=== PATIENT | female | born 1975 | race Caucasian/White ===

== ENCOUNTER 2017-03-19 00:40 | Emergency (ER) | payer OTHER ==
[2017-03-19 01:00] VITALS: BP 144/84; PULSE 70; TEMP 98.2; BMI 28.3
--- NOTE | 2017-03-19 01:43 | PDOC ---
History of Present Illness - General History Source: Patient Exam Limitations: No Limitations - History of Present Illness Initial Comments: 03/19/17 01:47 The patient is a 40-year-old female, with a significant past medical history of migraines, who presents to the ED with left ear pain and headache. Pt states that her symptoms began yesterday and were accompanied by congestion, runny nose , and sneezing. She reports taking tylenol but with no relief of her symptoms. The patient denies any fever, chills, nausea, vomiting, diarrhea, or abdominal pain. She denies any shortness of breath or chest pain. <Edith Mendoza - Last Filed: 03/19/17 01:52> <Anna Ybarra - Last Filed: 03/19/17 04:10> - General Chief Complaint: Pain Stated Complaint: EARACHE Time Seen by Provider: 03/19/17 01:14 Past History <Edith Mendoza - Last Filed: 03/19/17 01:52> - Past Medical History GI Disorders: Yes (GERD) Other medical history: Migraines - Reproductive History (#): 6 Para: 5 - Immunization History Immunization Up to Date: Yes - Psycho/Social/Smoking Cessation Hx Anxiety: No Suicidal Ideation: No Smoking Status: No Smoking History: Never smoked Have you smoked in the past 12 months: No Number of Cigarettes Smoked Daily: 0 Cigars Per Day: 0 Information on smoking cessation initiated: No Hx Alcohol Use: No Drug/Substance Use Hx: No Substance Use Type: None <Anna Ybarra - Last Filed: 03/19/17 04:10> - Past Medical History Allergies/Adverse Reactions: Allergies Allergy/AdvReac Type Severity Reaction Status Date / Time No Known Allergies Allergy Verified 03/19/17 00:52 Home Medications: Ambulatory Orders Triamcinolone Acetonide [Nasacort] 2 sprays NS DAILY #10.8 ml 03/19/17 Review of Systems - Review of Systems Able to Perform ROS?: Yes Comments:: 03/19/17 01:53 GENERAL/CONSTITUTIONAL: No fever or chills. No weakness. HEAD, EYES, EARS, NOSE AND THROAT: +left ear pain, runny nose, sneezing, and congestion. No change in vision. No ear discharge. No sore throat. CARDIOVASCULAR: No chest pain or shortness of breath. RESPIRATORY: No cough, wheezing, or hemoptysis. GASTROINTESTINAL: No nausea, vomiting, diarrhea or constipation. GENITOURINARY: No dysuria, frequency, or change in urination. MUSCULOSKELETAL: No joint or muscle swelling or pain. No neck or back pain. SKIN: No rash NEUROLOGIC: +Headache. No vertigo, loss of consciousness, or change in strength/ sensation. ENDOCRINE: No increased thirst. No abnormal weight change. HEMATOLOGIC/LYMPHATIC: No anemia, easy bleeding, or history of blood clots. ALLERGIC/IMMUNOLOGIC: No hives or skin allergy. <Edith Mendoza - Last Filed: 03/19/17 01:52> *Physical Exam - Vital Signs Last Vital Signs Temp Pulse Resp BP Pulse Ox 98.2 F 70 19 144/84 99 03/19/17 00:52 03/19/17 00:52 03/19/17 00:52 03/19/17 00:52 03/19/17 00:52 <Edith Mendoza - Last Filed: 03/19/17 01:52> - Vital Signs Last Vital Signs Temp Pulse Resp BP Pulse Ox 98.2 F 70 19 144/84 99 03/19/17 00:52 03/19/17 00:52 03/19/17 00:52 03/19/17 00:52 03/19/17 00:52 - Physical Exam Comments: GENERAL: Awake, alert, and fully oriented, in no acute distress HEAD: No signs of trauma EYES: PERRLA, EOMI, sclera anicteric, conjunctiva clear ENT: Auricles normal inspection, hearing grossly normal. TMs bulging with clear effusions B/L, no erythema. Nares with crusting B/L, oropharynx clear without exudates. Moist mucosa NECK: Normal ROM, supple, no lymphadenopathy, JVD, or masses LUNGS: Breath sounds equal, clear to auscultation bilaterally. No wheezes, and no crackles HEART: Regular rate and rhythm, normal S1 and S2, no murmurs, rubs or gallops ABDOMEN: Soft, nontender, normoactive bowel sounds. No guarding, no rebound. No masses EXTREMITIES: Normal range of motion, no edema. No clubbing or cyanosis. No cords, erythema, or tenderness NEUROLOGICAL: Cranial nerves II through XII grossly intact. Normal speech, normal gait SKIN: Warm, Dry, normal turgor, no rashes or lesions noted. <Anna Ybarra - Last Filed: 03/19/17 04:10> Medical Decision Making - Medical Decision Making Ear pain likely due to viral URI, as both ears are noted to have clear effusions. She has had sore throat, but throat is without exudates. Recommended nasal steroids to alleviate her symptoms. No indication for abx at this time. <Anna Ybarra - Last Filed: 03/19/17 04:10> *DC/Admit/Observation/Transfer - Attestations Scribe Attestion: 03/19/17 01:54 Documentation prepared by Edith Mendoza, acting as medical physiologist for Anna Ybarra MD. <Edith Mendoza - Last Filed: 03/19/17 01:52> - Discharge Dispostion Admit: No <Anna Ybarra - Last Filed: 03/19/17 04:10> Diagnosis at time of Disposition: Ear pain, left Upper respiratory infection Qualifiers: URI type: unspecified URI Qualified Code(s): J06.9 - Acute upper respiratory infection, unspecified - Discharge Dispostion Disposition: HOME Condition at time of disposition: Stable - Prescriptions Prescriptions: Triamcinolone Acetonide [Nasacort] 2 sprays NS DAILY #10.8 ml - Referrals Referrals: Cassie Vivas MD [Primary Care Provider] - - Patient Instructions Printed Discharge Instructions: DI for Viral Upper Respiratory Infection -- Adult, DI for Ear Pain-Adult Print Language: SYRIAC
== END 2017-03-19 01:54 | disposition home or self-care (01) ==
LOC: JER 00:40
DX: J06.9 Acute upper respiratory infection, unspecified (principal)
CPT/HCPCS: 99281-25

== ENCOUNTER 2017-08-17 18:35 | Emergency (ER) | payer OTHER ==
--- NOTE | 2017-08-17 18:38 | PDOC ---
Rapid Medical Evaluation Time Seen by Provider: 08/17/17 18:37 Medical Evaluation: Allergies Allergy/AdvReac Type Severity Reaction Status Date / Time No Known Allergies Allergy Verified 03/19/17 00:52 08/17/17 18:37 I have performed a brief in-person evaluation of this patient. The patient presents with a chief complaint of: Intermittent dizziness w/ n/v and UGALDE today. Pertinent physical exam findings:Stable w/ unremarkable exam I have ordered the following:labs The patient will proceed to the ED for further evaluation. 08/17/17 18:51 08/17/17 18:54 Discharge Disposition - Referrals Referrals: Cassie Vivas MD [Primary Care Provider] - - Patient Instructions - Post Discharge Activity
[2017-08-17 19:01] VITALS: BMI 27.4
[2017-08-17 20:45] LABS: BASO # 0.1 #; BASO % 0.6 % (0-2.0); EOS # 0.1 #; EOS % 0.8 % (0-4.5); LYMPH # 1.5; MCH 27.9 pg (25.7-33.7); MCHC 32.8 g/dl (32.0-36.0); MEAN CELL VOLUME 85.1 fl (80-96); MEAN PLT VOLUME 9.2 fl (7.5-11.1); MONO # 0.4 #; NEUT # 8.9 #; NEUT % 80.7 % (42.8-82.8); PLATELET COUNT 268 K/MM3 (134-434); RDW 14.4 % (11.6-15.6); WHITE BLOOD COUNT 11.1 K/mm3 (4.0-10.0)
[2017-08-17 20:50] LABS: URINE APPEARANCE SLCLOUDY; URINE BILIRUBIN NEGATIVE (NEGATIVE); URINE BLOOD NEGATIVE (NEGATIVE); URINE COLOR LTYELLOW; URINE GLUCOSE (UA) NEGATIVE (NEGATIVE); URINE KETONE NEGATIVE (NEGATIVE); URINE LEUK ESTERASE NEGATIVE (NEGATIVE); URINE NITRITE NEGATIVE (NEGATIVE); URINE PROTEIN NEGATIVE (NEGATIVE); URINE UROBILINOGEN NEGATIVE mg/dL (0.2-1.0)
[2017-08-17 21:02] LABS: ALBUMIN 4.2 g/dl (3.4-5.0); ANION GAP 8 (8-16); BILIRUBIN,TOTAL 0.3 mg/dL (0.2-1.0); CALCIUM 9.3 mg/dL (8.5-10.1); CO2 26 mmol/L (21-32); CREATININE 0.4 mg/dL (0.55-1.02); GLUCOSE,RANDOM 94 mg/dL (74-106); SGOT/AST 17 U/L (15-37); SGPT/ALT 34 U/L (12-78); TOT PROT 7.9 g/dl (6.4-8.2)
[2017-08-17 21:03] LABS: ALK PHOS 82 U/L (45-117)
[2017-08-17] MEDS ORDERED: SODIUM CHLORIDE 1,000 ML IV STA (21:42)
[2017-08-17] MEDS ORDERED: METOCLOPRAMIDE HCL INJECTION 10 MG/2 ML VIAL IVPUSH ONE (21:42)
--- NOTE | 2017-08-17 21:42 | PDOC ---
History of Present Illness - General Chief Complaint: Nausea Stated Complaint: NAUSEA,HEACHACE Time Seen by Provider: 08/17/17 18:37 History Source: Patient Exam Limitations: No Limitations - History of Present Illness Initial Comments: 08/17/17 21:55 42-year-old female with a history of vertigo/migraine presents to the emergency department complaining of bitemporal, left occipital 4/10 dull nonradiating intermittent throbbing headache and room spinning dizziness uncertain positions 6 hours with 2 bouts of vomiting 3 hours ago which was nonbloody and nonbilious. Patient denies fever, chills, facial pains, neck pain/stiffness, back pains, chest pain, shortness of breath, abdominal pains, extremity numbness or tingling sensation. Patient states her symptoms are similar to her previous vertigo and migraine Timing/Duration: 4-6 hours Past History - Past Medical History Allergies/Adverse Reactions: Allergies Allergy/AdvReac Type Severity Reaction Status Date / Time No Known Allergies Allergy Verified 08/17/17 18:52 Home Medications: Ambulatory Orders Triamcinolone Acetonide [Nasacort] 2 sprays NS DAILY #10.8 ml 03/19/17 CVA: No COPD: No GI Disorders: Yes (GERD) - Reproductive History (#): 6 Para: 5 - Immunization History Immunization Up to Date: Yes - Suicide/Smoking/Psychosocial Hx Smoking Status: No Smoking History: Never smoked Have you smoked in the past 12 months: No Number of Cigarettes Smoked Daily: 0 Cigars Per Day: 0 Information on smoking cessation initiated: No Hx Alcohol Use: No Drug/Substance Use Hx: No Substance Use Type: None Review of Systems - Review of Systems Able to Perform ROS?: Yes Comments:: 08/17/17 21:56 CONSTITUTIONAL: Absent: fever, chills, diaphoresis, generalized weakness, malaise, loss of appetite HEENT: Absent: rhinorrhea, nasal congestion, throat pain, throat swelling, difficulty swallowing, mouth swelling, ear pain, eye pain, visual Changes CARDIOVASCULAR: Absent: chest pain, loss of consciousness, palpitations, irregular heart rate, peripheral edema RESPIRATORY: Absent: cough, shortness of breath, dyspnea with exertion, orthopnea, wheezing, stridor, hemoptysis GASTROINTESTINAL: Absent: abdominal pain, abdominal distension, nausea, vomiting, diarrhea, constipation, melena, hematochezia GENITOURINARY: Absent: dysuria, frequency, urgency, hesitancy, hematuria, flank pain, genital pain MUSCULOSKELETAL: Absent: myalgia, arthralgia, joint swelling SKIN: Absent: rash, itching, pallor HEMATOLOGIC/IMMUNOLOGIC: Absent: easy bleeding, easy bruising, lymphadenopathy, frequent infections ENDOCRINE: Absent: unexplained weight gain, unexplained weight loss, heat intolerance, cold intolerance NEUROLOGIC: +dizzy, eaton Absent: focal weakness or paresthesias, unsteady gait, seizure, mental status changes, bladder or bowel incontinence PSYCHIATRIC: Absent: anxiety, depression, suicidal or homicidal ideation, hallucinations. Is the patient limited Kinyarwanda proficient: No *Physical Exam - Vital Signs Last Vital Signs Temp Pulse Resp BP Pulse Ox 97.5 F L 76 16 159/91 99 08/17/17 18:53 08/17/17 18:53 08/17/17 18:53 08/17/17 18:53 08/17/17 18:53 - Physical Exam Comments: 08/17/17 21:58 GENERAL: Well developed, well nourished. Awake and alert. No acute distress. HEENT: Normocephalic, atraumatic. PERRLA, EOMI. No conjunctival pallor. Sclera are non- icteric. Moist mucous membranes. Oropharynx is clear. NECK: Supple. Full ROM. No JVD. Carotid pulses 2+ and symmetric, without bruits. No thyromegaly. No lymphadenopathy. CARDIOVASCULAR: Regular rate and rhythm. No murmurs, rubs, or gallops. Distal pulses are 2+ and symmetric. PULMONARY: No evidence of respiratory distress. Lungs clear to auscultation bilaterally. No wheezing, rales or rhonchi. ABDOMINAL: Soft. Non-tender. Non-distended. No rebound or guarding. No organomegaly. Normoactive bowel sounds. MUSCULOSKELETAL Normal range of motion at all joints. No bony deformities or tenderness. No CVA tenderness. EXTREMITIES: No cyanosis. No clubbing. No edema. No calf tenderness. SKIN: Warm and dry. Normal capillary refill. No rashes. No jaundice. NEUROLOGICAL: Alert, awake, appropriate. Cranial nerves 2-12 intact. No deficits to light touch and temperature in face, upper extremities and lower extremities. No motor deficits in the in face, upper extremities and lower extremities. Normoreflexic in the upper and lower extremities. Normal speech. Toes are down- going bilaterally. Gait is normal without ataxia. PSYCHIATRIC: Cooperative. Good eye contact. Appropriate mood and affect. ED Treatment Course - LABORATORY CBC & Chemistry Diagram: 08/17/17 19:25 08/17/17 19:25 - ADDITIONAL ORDERS Additional order review: Laboratory Results 08/17/17 08/17/17 19:25 19:25 Sodium 136 Potassium 3.9 Chloride 102 Carbon Dioxide 26 Anion Gap 8 BUN 14 D Creatinine 0.4 L Creat Clearance w eGFR > 60 Random Glucose 94 Calcium 9.3 Total Bilirubin 0.3 D AST 17 D ALT 34 D Alkaline Phosphatase 82 Total Protein 7.9 Albumin 4.2 Urine HCG, Qual Negative 08/17/17 19:25 RBC 4.83 MCV 85.1 MCHC 32.8 RDW 14.4 MPV 9.2 Neutrophils % 80.7 D Lymphocytes % 14.0 D Monocytes % 3.9 Eosinophils % 0.8 D Basophils % 0.6 *DC/Admit/Observation/Transfer Diagnosis at time of Disposition: Migraine Qualifiers: Migraine type: without aura Status migrainosus presence: without status migrainosus Intractability: not intractable Qualified Code(s): G43.009 - Migraine without aura, not intractable, without status migrainosus Benign positional vertigo Qualifiers: Laterality: unspecified laterality Qualified Code(s): H81.10 - Benign paroxysmal vertigo, unspecified ear - Discharge Dispostion Condition at time of disposition: Stable Admit: No - Referrals Referrals: Cassie Vivas MD [Primary Care Provider] - Juan Brock DO [Staff Physician] - - Patient Instructions Printed Discharge Instructions: DI for Migraine, Benign Paroxysmal Positional Vertigo Additional Instructions: Rest Increase fluids Follow up with the neurologist within 48 hours Return to the Er for persistent/worsening symptoms - Post Discharge Activity Progress Note - Progress Note Progress Note: 2215hrs: Pt feels better 2335hrs: Pt states she is symptom free and wishes to be d/c
--- NOTE | 2017-08-17 21:45 | PDOC ---
*Physical Exam - Vital Signs Last Vital Signs Temp Pulse Resp BP Pulse Ox 97.5 F L 76 16 159/91 99 08/17/17 18:53 08/17/17 18:53 08/17/17 18:53 08/17/17 18:53 08/17/17 18:53 ED Treatment Course - LABORATORY CBC & Chemistry Diagram: 08/17/17 19:25 08/17/17 19:25 - ADDITIONAL ORDERS Additional order review: Laboratory Results 08/17/17 08/17/17 19:25 19:25 Sodium 136 Potassium 3.9 Chloride 102 Carbon Dioxide 26 Anion Gap 8 BUN 14 D Creatinine 0.4 L Creat Clearance w eGFR > 60 Random Glucose 94 Calcium 9.3 Total Bilirubin 0.3 D AST 17 D ALT 34 D Alkaline Phosphatase 82 Total Protein 7.9 Albumin 4.2 Urine HCG, Qual Negative 08/17/17 19:25 RBC 4.83 MCV 85.1 MCHC 32.8 RDW 14.4 MPV 9.2 Neutrophils % 80.7 D Lymphocytes % 14.0 D Monocytes % 3.9 Eosinophils % 0.8 D Basophils % 0.6 Medical Decision Making - Medical Decision Making 08/17/17 21:45 agree with care from NIMESH Ortiz *DC/Admit/Observation/Transfer Diagnosis at time of Disposition: Migraine, Benign positional vertigo - Discharge Dispostion Condition at time of disposition: Stable - Referrals Referrals: Juan Brock DO [Staff Physician] - Cassie Vivas MD [Primary Care Provider] - - Patient Instructions Printed Discharge Instructions: DI for Migraine, Benign Paroxysmal Positional Vertigo Additional Instructions: Rest Increase fluids Follow up with the neurologist within 48 hours Return to the Er for persistent/worsening symptoms - Post Discharge Activity
[2017-08-17] MEDS ORDERED: METOCLOPRAMIDE HCL INJECTION 10 MG/2 ML VIAL ONE (22:14)
[2017-08-17 22:32] LABS: URINE LEUK ESTERASE Negative (NEGATIVE)
[2017-08-18 00:12] VITALS: BP 145/84; PULSE 74; TEMP 97.4
== END 2017-08-18 00:22 | disposition home or self-care (01) ==
LOC: JER 18:35
PROC: 3E033GC Introduction of Other Therapeutic Substance into Peripheral Vein, Percutaneous Approach (ICD-10-PCS; principal; 2017-08-17)
DX: G43.009 Migraine without aura, not intractable, without status migrainosus (principal); H81.10 Benign paroxysmal vertigo, unspecified ear
CPT/HCPCS: 36415; 80053; 81003; 84703; 85025; 99282-25

== ENCOUNTER 2017-09-18 14:07 | Emergency (ER) | payer OTHER ==
[2017-09-18 14:19] VITALS: BP 123/76; PULSE 77; TEMP 98.4; BMI 27.4
--- NOTE | 2017-09-18 14:47 | PDOC ---
History of Present Illness - General Chief Complaint: Ear Problem Stated Complaint: EAR PAIN History Source: Patient Exam Limitations: No Limitations - History of Present Illness Initial Comments: 09/18/17 14:48 42-year-old female presents here with complaints of left ear pain. She was treated a couple weeks ago for vertigo pain. Past History - Past Medical History Allergies/Adverse Reactions: Allergies Allergy/AdvReac Type Severity Reaction Status Date / Time No Known Allergies Allergy Verified 09/18/17 14:19 Home Medications: Ambulatory Orders Meclizine HCl 25 mg PO BID 5 Days #10 tablet 09/18/17 Ofloxacin Otic [Floxin Otic -] 10 drop OT BID #1 bottle 09/18/17 CVA: No COPD: No GI Disorders: Yes (GERD) Other medical history: vertigo - Reproductive History (#): 6 Para: 5 - Immunization History Immunization Up to Date: Yes - Suicide/Smoking/Psychosocial Hx Smoking Status: No Smoking History: Never smoked Have you smoked in the past 12 months: No Number of Cigarettes Smoked Daily: 0 Cigars Per Day: 0 Hx Alcohol Use: No Drug/Substance Use Hx: No Substance Use Type: None Review of Systems - Review of Systems Able to Perform ROS?: Yes Comments:: 09/18/17 14:58 General statement: Left ear pain Hematology: neg history of bleeding/blood thinners Skin: Neg for lesions, rash, bruising. HEENT: Neg symptoms Respiratory: Neg SOB or difficulty in breathing Cardiac: Neg chest pain GI: Neg pain, n/v : Neg problems on voiding MS: Neg for joint pain/stiffness, no edema Neuro: Neg for LOC, weakness, Endocrine: Neg for excess thirst/hunger, cold/heat intolerance, excess sweating Allergies: Neg for allergies *Physical Exam - Vital Signs Last Vital Signs Temp Pulse Resp BP Pulse Ox 98.4 F 77 18 123/76 99 09/18/17 14:16 09/18/17 14:16 09/18/17 14:16 09/18/17 14:16 09/18/17 14:16 - Physical Exam Comments: 09/18/17 14:58 General Appearance: This well appearing V/S: hemodynamically stable, afebrile Skin: WNL of pt's skin color, no signs of pallor, mottling, cyanosis Head:symmetrical Eyes: EOM's intact, PERRLA Ears: Planes of left ear pain no complaint of pain to the right ear and also states she's dizzy on and off Nose: patent Throat: lips, teeth, gums, tongue, buccal mucos pink and moist Lungs: Chest symmetry equal. Cap refill <3 seconds. Lung sounds clear Cardiac: PMI at R 4MCL space, pos S1 and S2, regular rate. Abdomen: Soft, round, nontender : Not observed Muscularskeletal: Gait steady, ambulated in to ER, no edema +PMS Neuro: AAOx3, cognitively intact, speech clear and appropriate. Medical Decision Making - Medical Decision Making 09/18/17 14:59 She was initially seen and examined. Patient is going to be given Antivert as well as some eardrops for a left ear labyrinthitis. She should follow-up with an ENT. *DC/Admit/Observation/Transfer Diagnosis at time of Disposition: Benign positional vertigo Qualifiers: Laterality: left Qualified Code(s): H81.12 - Benign paroxysmal vertigo, left ear Acute labyrinthitis Qualifiers: Laterality: left Qualified Code(s): H83.02 - Labyrinthitis, left ear - Discharge Dispostion Disposition: HOME Condition at time of disposition: Good Admit: No - Referrals - Patient Instructions Printed Discharge Instructions: DI for Benign Paroxysmal Positional Vertigo Additional Instructions: Discharge instructions 1. Please follow up with your primary physician within the next few days and explain that you have been seen here in the Emergency Room. 2. If you experience any worsening of symptoms, please return to the ER 3. Rest, do not stick anything in the ear, take drops and pills as directed. 4. Drink plenty of water - Post Discharge Activity
== END 2017-09-18 14:50 | disposition home or self-care (01) ==
LOC: JERFT 14:07
DX: H81.12 Benign paroxysmal vertigo, left ear (principal); H83.02 Labyrinthitis, left ear
CPT/HCPCS: 99281-25

== ENCOUNTER 2017-10-02 17:58 | Emergency (ER) | payer OTHER ==
[2017-10-02 18:51] VITALS: BP 129/82; PULSE 81; TEMP 98.3; BMI 27.4
[2017-10-02] MEDS ORDERED: IBUPROFEN 400 MG TABLET (FP) PO ONE ×2 (20:29→21:02)
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
[2017-10-02] MEDS ORDERED: CYCLOBENZAPRINE HCL 10 MG TABLET (FP) PO ONE (20:30)
[2017-10-02] MEDS ORDERED: CYCLOBENZAPRINE HCL 10 MG TABLET (FP) ONE (21:02)
== END 2017-10-02 21:18 | disposition home or self-care (01) ==
LOC: JERFT 17:58
DX: M54.5 Low back pain (principal); M25.561 Pain in right knee; V49.59XA Passenger injured in collision with other motor vehicles in traffic accident, initial encounter; Y92.488 Other paved roadways as the place of occurrence of the external cause; Y93.89 Activity, other specified; Y99.8 Other external cause status
CPT/HCPCS: 99281-25

== ENCOUNTER 2019-03-30 22:50 | Emergency (ER) | payer OTHER ==
[2019-03-30 23:01] VITALS: BP 150/95; PULSE 89; TEMP 98.1; BMI 29.1
[2019-03-31] MEDS ORDERED: METOCLOPRAMIDE HCL INJECTION 10 MG/2 ML VIAL IVPUSH ONE (00:16)
[2019-03-31] MEDS ORDERED: SODIUM CHLORIDE 1,000 ML IV STA (00:16)
--- NOTE | 2019-03-31 00:36 | PDOC ---
History of Present Illness - General Chief Complaint: Migraine Headache Stated Complaint: MIGRAINES HEADACHE Time Seen by Provider: 03/31/19 00:15 History Source: Patient - History of Present Illness Initial Comments: 03/31/19 00:43 43 year old female with history of migraines (currently on triptan & fiorocet PRN), Vertigo c/o migraine x 3 days. + photophobia, + phonophobia. + nausea, denies vomiting, abdominal pain, weakness, numbness. patient reports that 25 days ago patient had a SQ for migraines. reports headache once per week usually relieved with fiorocet. Past History - Past Medical History Allergies/Adverse Reactions: Allergies Allergy/AdvReac Type Severity Reaction Status Date / Time No Known Allergies Allergy Verified 03/30/19 23:40 Home Medications: Ambulatory Orders Butabarbital Sodium [Butisol Sodium] 30 mg PO PRN 03/30/19 Erenumab-Aooe [Aimovig Autoinjector] 70 mg SQ PRN PRN 03/30/19 Nortriptyline HCl [Pamelor -] 10 mg PO DAILY 03/30/19 CVA: No COPD: No GI Disorders: Yes (GERD) - Reproductive History (#): 6 Para: 5 - Immunization History Immunization Up to Date: Yes - Suicide/Smoking/Psychosocial Hx Smoking Status: No Smoking History: Never smoked Have you smoked in the past 12 months: No Number of Cigarettes Smoked Daily: 0 Cigars Per Day: 0 Hx Alcohol Use: No Drug/Substance Use Hx: No Substance Use Type: None Review of Systems - Review of Systems Able to Perform ROS?: Yes Is the patient limited Kosovan proficient: No Constitutional: No: Symptoms Reported, See HPI, Chills, Diaphoresis, Fever, Loss of Appetite, Malaise, Night Sweats, Weakness, Weight Stable, Unintentional Wgt. Loss, Unexplained wgt Loss, Other HEENTM: Yes: Other (photophobia and phonophobia). No: Symptoms Reported, See HPI, Eye Pain, Blurred Vision, Tearing, Recent change in vision, Double Vision, Cataracts, Ear Pain, Ocular Prothesis, Ear Discharge, Nose Pain, Nose Congestion , Tinnitus, Nose Bleeding, Hearing Loss, Throat Pain, Throat Swelling, Mouth Pain, Dental Problems, Difficulty Swallowing, Mouth Swelling ABD/GI: Yes: Nausea *Physical Exam - Vital Signs Last Vital Signs Temp Pulse Resp BP Pulse Ox 98.1 F 89 20 150/95 98 03/30/19 22:52 03/30/19 22:52 03/30/19 22:52 03/30/19 22:52 03/30/19 22:52 - Physical Exam General Appearance: Yes: Appropriately Dressed HEENT: positive: Normal ENT Inspection Neck: negative: Rigidity Respiratory/Chest: positive: Lungs Clear, Normal Breath Sounds Gastrointestinal/Abdominal: positive: Normal Bowel Sounds, Soft. negative: Tender Extremity: positive: Normal Capillary Refill, Normal Inspection, Normal Range of Motion Integumentary: positive: Normal Color, Dry, Warm Neurologic: positive: drapery installer II-XII NML intact, Fully Oriented, Alert, Normal Mood/ Affect, Normal Response, Motor Strength 12/24 ED Treatment Course - LABORATORY CBC & Chemistry Diagram: 03/31/19 00:23 03/31/19 00:23 Progress Note - Progress Note Progress Note: A: migraine headache P: cbc cmp Serum UA IVF benadryl reglan Medical Decision Making - Medical Decision Making 03/31/19 01:38 patient is now feeling better. will d/c home after IVF fluids/. *DC/Admit/Observation/Transfer Diagnosis at time of Disposition: Migraine Qualifiers: Migraine type: other Status migrainosus presence: without status migrainosus Intractability: not intractable Qualified Code(s): G43.809 - Other migraine, not intractable, without status migrainosus - Discharge Dispostion Disposition: HOME - Referrals Referrals: Lyubov Hernandes MD [Primary Care Provider] - - Patient Instructions Printed Discharge Instructions: Migraine -- Adult Additional Instructions: drink plenty of fluids. Follow-up with your neurologist as soon as possible - Post Discharge Activity Forms/Work/School Notes: Back to Work
[2019-03-31] MEDS ORDERED: METOCLOPRAMIDE HCL INJECTION 10 MG/2 ML VIAL ONE (00:37)
[2019-03-31] MEDS ORDERED: ACETAMINOPHEN 1000 MG/100 ML VIAL (NON FORMULARY) IVPB ONE (00:48)
[2019-03-31] MEDS ORDERED: ACETAMINOPHEN INJECTION 100 ML IVPB ONE (00:58)
[2019-03-31 01:25] LABS: URINE APPEARANCE CLEAR; URINE BILIRUBIN NEGATIVE (NEGATIVE); URINE COLOR YELLOW; URINE GLUCOSE (UA) NEGATIVE (NEGATIVE); URINE KETONE NEGATIVE (NEGATIVE); URINE LEUK ESTERASE NEGATIVE (NEGATIVE); URINE NITRITE NEGATIVE (NEGATIVE); URINE PROTEIN NEGATIVE (NEGATIVE); URINE UROBILINOGEN 0.2 mg/dL (0.2-1.0)
[2019-03-31 01:25] LABS: BILIRUBIN,TOTAL 0.2 mg/dL (0.2-1); BLOOD UREA NITROGEN 10.1 mg/dL (7-18); CALCIUM 8.9 mg/dL (8.5-10.1); CREATININE 0.5 mg/dL (0.55-1.3); POTASSIUM 3.8 mmol/L (3.5-5.1); TOT PROT 7.4 g/dl (6.4-8.2)
[2019-03-31 01:43] LABS: MONO % 8.6 % (3.8-10.2)
--- NOTE | 2019-03-31 01:45 | PDOC ---
*Physical Exam - Vital Signs Last Vital Signs Temp Pulse Resp BP Pulse Ox 98.1 F 89 20 150/95 98 03/30/19 22:52 03/30/19 22:52 03/30/19 22:52 03/30/19 22:52 03/30/19 22:52 ED Treatment Course - LABORATORY CBC & Chemistry Diagram: 03/31/19 00:23 03/31/19 00:23 - ADDITIONAL ORDERS Additional order review: Laboratory Results 03/31/19 03/31/19 00:45 00:23 Sodium 140 Potassium 3.8 Chloride 107 Carbon Dioxide 24 Anion Gap 9 BUN 10.1 Creatinine 0.5 L Est GFR (CKD-EPI)AfAm 135.47 Est GFR (CKD-EPI)NonAf 116.89 Random Glucose 105 Calcium 8.9 Total Bilirubin 0.2 AST 21 ALT 38 Alkaline Phosphatase 82 Total Protein 7.4 Albumin 4.0 Urine Color Yellow Urine Appearance Clear Urine pH 7.0 Ur Specific [place] 1.003 L Urine Protein Negative Urine Glucose (UA) Negative Urine Ketones Negative Urine Blood Negative Urine Nitrite Negative Urine Bilirubin Negative Urine Urobilinogen 0.2 Ur Leukocyte Esterase Negative - Medications Given in the ED: ED Medications Discontinued Medications Generic Name Dose Route Start Last Admin Trade Name Freq PRN Reason Stop Dose Admin Acetaminophen 1,000 mg 03/31/19 00:48 03/31/19 01:10 Ofirmev Injection - IVPB 03/31/19 00:49 1,000 mg ONCE ONE Administration Diphenhydramine HCl 25 mg 03/31/19 00:16 03/31/19 00:51 Benadryl Injection - IVPB 03/31/19 00:17 25 mg ONCE ONE Administration Sodium Chloride 1,000 mls @ 1,000 mls/hr 03/31/19 00:16 03/31/19 00:51 Normal Saline - IV 03/31/19 01:15 1,000 mls/hr ASDIR STA Administration Metoclopramide HCl 10 mg 03/31/19 00:16 03/31/19 00:51 Reglan Injection - IVPUSH 03/31/19 00:17 10 mg ONCE ONE Administration Medical Decision Making - Medical Decision Making 03/31/19 01:40 43 yo F presenting with a complaint of migraine Pt has a h/o migraine headaches (currently on triptan & fiorocet PRN), being treated with a subcutaneous injection (unsure the name) Pt has had migraine x 3 days. + photophobia, + phonophobia. + nausea Pt s/p injection almost 1 month ago. Pt has been doing well since this injection, however pt developed worsening headache, associated photophobia Pt seen by Midlevel Provider under my direct supervision Pt interviewed and examined Ancillary studies reviewed Pt headache has improved significantly since arrival I agree with plan as outlined by Midlevel Provider 03/31/19 01:45 *DC/Admit/Observation/Transfer Diagnosis at time of Disposition: Migraine Qualifiers: Migraine type: other Status migrainosus presence: without status migrainosus Intractability: not intractable Qualified Code(s): G43.809 - Other migraine, not intractable, without status migrainosus - Discharge Dispostion Disposition: HOME - Referrals Referrals: Lyubov Hernandes MD [Primary Care Provider] - - Patient Instructions Printed Discharge Instructions: Migraine -- Adult Additional Instructions: drink plenty of fluids. Follow-up with your neurologist as soon as possible - Post Discharge Activity Forms/Work/School Notes: Back to Work
[2019-03-31 02:30] LABS: BASO % 0.6 % (0-2.0); EOS % 7.6 % (0-4.5); HEMATOCRIT 38.2 % (32.4-45.2); HEMOGLOBIN 13.1 GM/dL (10.7-15.3); LYMPH % 27.1 % (8-40); MCHC 34.2 g/dl (32.0-36.0); MEAN CELL VOLUME 81.8 fl (80-96); MEAN PLT VOLUME 9.2 fl (7.5-11.1); NEUT % 56.1 % (42.8-82.8); PLATELET COUNT 250 K/MM3 (134-434); RBC 4.67 M/mm3 (3.60-5.2); RDW 15.6 % (11.6-15.6); WHITE BLOOD COUNT 6.8 K/mm3 (4.0-10.0)
== END 2019-03-31 02:10 | disposition home or self-care (01) ==
LOC: JER 22:50
PROC: 3E033NZ Introduction of Analgesics, Hypnotics, Sedatives into Peripheral Vein, Percutaneous Approach (ICD-10-PCS; principal; 2019-03-30)
PROC: 3E033GC Introduction of Other Therapeutic Substance into Peripheral Vein, Percutaneous Approach (ICD-10-PCS; 2019-03-30)
PROC: 3E0337Z Introduction of Electrolytic and Water Balance Substance into Peripheral Vein, Percutaneous Approach (ICD-10-PCS; 2019-03-30)
DX: G43.809 Other migraine, not intractable, without status migrainosus (principal); K21.9 Gastro-esophageal reflux disease without esophagitis
CPT/HCPCS: 36415; 80053; 81003; 84703; 85025; 99282-25; J0131; J7030

== ENCOUNTER 2021-06-06 00:33 | Emergency (ER) | payer OTHER ==
[2021-06-06 01:13] VITALS: BP 144/90; TEMP 98.9; BMI 29.4
[2021-06-06] MEDS ORDERED: MECLIZINE HCL 25 MG TABLET (FP) PO ONE (01:37)
[2021-06-06] MEDS ORDERED: MECLIZINE HCL 25 MG TABLET (FP) ONE (01:55)
[2021-06-06 03:32] VITALS: PULSE 68
== END 2021-06-06 03:35 | disposition home or self-care (01) ==
LOC: JER 00:33
DX: R42 Dizziness and giddiness (principal)
CPT/HCPCS: 99283-25

== ENCOUNTER 2022-04-27 18:31 | Emergency (ER) | payer OTHER ==
[2022-04-27 18:50] VITALS: BP 155/89; PULSE 64; RESP 18; TEMP 98.6; BMI 27.4
[2022-04-27] MEDS ORDERED: KETOROLAC TROMETHAMINE 30 MG/1 ML VIAL IM ONE ×2 (19:27→20:31)
[2022-04-27] MEDS ORDERED: diazePAM 5 MG TABLET PO ONE ×2 (19:27→20:31)
[2022-04-27] MEDS ORDERED: diazePAM 5 MG TABLET ONE (20:37)
[2022-04-27] MEDS ORDERED: KETOROLAC TROMETHAMINE 30 MG/1 ML VIAL ONE (20:37)
== END 2022-04-27 22:38 | disposition home or self-care (01) ==
LOC: JERFT 18:31
PROC: 3E023GC Introduction of Other Therapeutic Substance into Muscle, Percutaneous Approach (ICD-10-PCS; principal; 2022-04-27)
DX: M54.2 Cervicalgia (principal); V49.40XA Driver injured in collision with unspecified motor vehicles in traffic accident, initial encounter
CPT/HCPCS: 70450-TC; 72125-TC; 99284-25

== ENCOUNTER 2022-05-02 00:20 | Observation (INO) | payer OTHER ==
[2022-05-02 00:42] VITALS: RESP 18; BMI 28.3
[2022-05-02] MEDS ORDERED: ACETAMINOPHEN 1000 MG/100 ML BAG IVPB ONE (01:06)
[2022-05-02] MEDS ORDERED: LIDOCAINE 5% TOPICAL PATCH TP ONE (01:07)
[2022-05-02] MEDS ORDERED: LIDOCAINE 5% TOPICAL PATCH ONE ×2 (01:55→15:21)
[2022-05-02] MEDS ORDERED: ACETAMINOPHEN INJECTION 100 ML IVPB ONE (01:55)
[2022-05-02 03:00] LABS: BASO % 0.6 % (0-2.0); EOS % 7.8 % (0-4.5); HEMATOCRIT 41.6 % (32.4-45.2); HEMOGLOBIN 14.7 GM/dL (10.7-15.3); LYMPH % 34.2 % (8-40); MCH 31.7 pg (25.7-33.7); MCHC 35.3 g/dl (32.0-36.0); MEAN CELL VOLUME 89.8 fl (80-96); MEAN PLT VOLUME 9.5 fl (7.5-11.1); MONO % 8.9 % (3.8-10.2); NEUT % 48.5 % (42.8-82.8); PLATELET COUNT 240 10^3/uL (134-434); RBC 4.64 M/mm3 (3.60-5.2); RDW 13.6 % (11.6-15.6); WHITE BLOOD COUNT 7.1 K/mm3 (4.0-10.0)
[2022-05-02 03:12] LABS: CHLORIDE 103 mmol/L (98-107); SODIUM 139 mmol/L (136-145)
[2022-05-02 03:15] LABS: CALCIUM 8.7 mg/dL (8.5-10.1)
[2022-05-02 03:16] LABS: ANION GAP 9 MMOL/L (8-16); BLOOD UREA NITROGEN 16.3 mg/dL (7-18); CO2 27 mmol/L (21-32); GLUCOSE,RANDOM 107 mg/dL (74-106)
[2022-05-02 03:19] LABS: CREATININE 0.7 mg/dL (0.55-1.3); SGOT/AST 46 U/L (15-37); SGPT/ALT 67 U/L (13-61)
[2022-05-02 03:20] LABS: TOT PROT 7.3 g/dl (6.4-8.2)
[2022-05-02 03:21] LABS: BILIRUBIN,TOTAL 0.2 mg/dL (0.2-1)
[2022-05-02 03:22] LABS: ALK PHOS 96 U/L (45-117)
[2022-05-02] MEDS ORDERED: ASPIRIN 325 MG TABLET PO ONE (08:25)
[2022-05-02] MEDS ORDERED: ASPIRIN 81 MG CHEWABLE TABLETS ONE (09:06)
[2022-05-02] MEDS ORDERED: ACETAMINOPHEN 325 MG TABLET (FP) PO PRN (09:07)
[2022-05-02] MEDS: ASPIRIN 325 MG TABLET PO ONE ×2 (09:10→09:16)
[2022-05-02] MEDS ORDERED: FAMOTIDINE 10 MG TABLET ONE (09:42)
[2022-05-02] MEDS ORDERED: ENOXAPARIN NA (PORCINE) 80 MG/0.8 ML DISP.SYRIN SQ ONE ×2 (09:43→20:44)
[2022-05-02] MEDS: FAMOTIDINE 10 MG TABLET PO SCH (09:48)
[2022-05-02] MEDS: ENOXAPARIN NA (PORCINE) 80 MG/0.8 ML DISP.SYRIN SQ SCH ×2 (09:48→21:23)
[2022-05-02] MEDS ORDERED: ACETAMINOPHEN 325 MG TABLET (FP) ONE (10:47)
[2022-05-02] MEDS ORDERED: LIDOCAINE PATCH REMOVAL MC ONE (14:00)
[2022-05-02] MEDS ORDERED: IBUPROFEN 800 MG/8 ML IJ IVPB PRN (15:40)
[2022-05-02] MEDS ORDERED: IBUPROFEN 800 MG/8 ML IJ IVPB ONE (15:45)
[2022-05-02] MEDS ORDERED: ATORVASTATIN CA 40 MG TABLET (FP) ONE (20:44)
[2022-05-02] MEDS ORDERED: ATORVASTATIN CA 40 MG TABLET (FP) PO ONE (22:00)
[2022-05-03 07:41] LABS: BASO % 0.7 % (0-2.0); HEMATOCRIT 42.6 % (32.4-45.2); HEMOGLOBIN 14.6 GM/dL (10.7-15.3); LYMPH % 42.9 % (8-40); MCH 30.8 pg (25.7-33.7); MCHC 34.2 g/dl (32.0-36.0); MEAN CELL VOLUME 89.9 fl (80-96); MEAN PLT VOLUME 8.9 fl (7.5-11.1); MONO % 8.6 % (3.8-10.2); NEUT % 37.8 % (42.8-82.8); PLATELET COUNT 242 10^3/uL (134-434); RBC 4.74 M/mm3 (3.60-5.2); RDW 13.7 % (11.6-15.6); WHITE BLOOD COUNT 5.7 K/mm3 (4.0-10.0)
[2022-05-03 07:54] LABS: ALBUMIN 3.8 g/dl (3.4-5.0); BLOOD UREA NITROGEN 14.1 mg/dL (7-18); CALCIUM 8.6 mg/dL (8.5-10.1)
[2022-05-03 07:57] LABS: CREATININE 0.5 mg/dL (0.55-1.3)
[2022-05-03 07:59] LABS: BILIRUBIN,TOTAL 0.5 mg/dL (0.2-1); TOT PROT 7.1 g/dl (6.4-8.2)
[2022-05-03] MEDS ORDERED: ENOXAPARIN NA (PORCINE) 80 MG/0.8 ML DISP.SYRIN SQ ONE (08:02)
[2022-05-03] MEDS ORDERED: FAMOTIDINE 10 MG TABLET ONE (08:02)
[2022-05-03] MEDS ORDERED: ASPIRIN 81 MG CHEWABLE TABLETS ONE (08:02)
[2022-05-03] MEDS: FAMOTIDINE 10 MG TABLET PO SCH (09:00)
[2022-05-03] MEDS: ASPIRIN 81 MG CHEWABLE TABLETS PO SCH (09:00)
[2022-05-03] MEDS: ENOXAPARIN NA (PORCINE) 80 MG/0.8 ML DISP.SYRIN SQ SCH (09:00)
[2022-05-03 14:42] LABS: CHOLESTEROL 252 mg/dL (50-200)
[2022-05-03 14:43] LABS: TRIGLYCERIDES 276 mg/dL (0-150)
[2022-05-03 14:44] LABS: LDL CHOLESTEROL (ONLY SJRH) 172 mg/dL (5-100)
[2022-05-03 14:45] LABS: HDL CHOLESTEROL 36 mg/dL (40-60)
[2022-05-03] MEDS ORDERED: NORTRIPTYLINE HCL 10 MG CAPSULE PO PRN (14:56)
[2022-05-03] MEDS ORDERED: UBROGEPANT 50 MG PO SCH (15:00)
[2022-05-03] MEDS ORDERED: ROSUVASTATIN CA 20 MG TABLET PO SCH (22:00)
[2022-05-03] MEDS ORDERED: ATORVASTATIN CA 80 MG TABLET (FP) PO SCH (22:00)
[2022-05-03] MEDS ORDERED: MECLIZINE HCL 25 MG TABLET (FP) ONE (22:14)
[2022-05-03] MEDS ORDERED: ROSUVASTATIN CA 20 MG TABLET ONE (22:14)
[2022-05-03] MEDS: MECLIZINE HCL 25 MG TABLET (FP) PO SCH (22:19)
[2022-05-04 07:06] LABS: HEMATOCRIT 40.3 % (32.4-45.2); HEMOGLOBIN 14.1 GM/dL (10.7-15.3); MCH 31.5 pg (25.7-33.7); MCHC 34.9 g/dl (32.0-36.0); MEAN CELL VOLUME 90.2 fl (80-96); MEAN PLT VOLUME 8.6 fl (7.5-11.1); PLATELET COUNT 219 10^3/uL (134-434); RBC 4.47 M/mm3 (3.60-5.2); RDW 13.7 % (11.6-15.6); WHITE BLOOD COUNT 5.6 K/mm3 (4.0-10.0)
[2022-05-04 07:25] LABS: CHLORIDE 107 mmol/L (98-107); SODIUM 140 mmol/L (136-145)
[2022-05-04 07:35] LABS: ALBUMIN 3.7 g/dl (3.4-5.0); ANION GAP 8 MMOL/L (8-16); BLOOD UREA NITROGEN 14.2 mg/dL (7-18); CALCIUM 8.8 mg/dL (8.5-10.1); CO2 25 mmol/L (21-32); GLUCOSE,RANDOM 94 mg/dL (74-106); MAGNESIUM 2.4 mg/dL (1.8-2.4)
[2022-05-04 07:36] LABS: SGOT/AST 56 U/L (15-37)
[2022-05-04 07:37] LABS: SGPT/ALT 73 U/L (13-61)
[2022-05-04 07:38] LABS: BILIRUBIN,TOTAL 0.5 mg/dL (0.2-1); CREATININE 0.5 mg/dL (0.55-1.3); TOT PROT 6.6 g/dl (6.4-8.2)
[2022-05-04 07:39] LABS: ALK PHOS 72 U/L (45-117)
[2022-05-04] MEDS: ASPIRIN 81 MG CHEWABLE TABLETS PO SCH (09:12)
[2022-05-04] MEDS: MECLIZINE HCL 25 MG TABLET (FP) PO SCH (09:12)
[2022-05-04] MEDS: FAMOTIDINE 10 MG TABLET PO SCH (09:12)
[2022-05-04] MEDS ORDERED: ENOXAPARIN NA (PORCINE) 40 MG/0.4 ML DISP.SYRIN SQ SCH (10:00)
[2022-05-04 18:22] VITALS: BP 135/83; PULSE 64; TEMP 98.4
== END 2022-05-04 21:50 | disposition home or self-care (01) ==
LOC: JER 00:20 → INTOOBSV 03:46 → JERBED 03:46 → J4W 05-04 00:29
PROVIDERS: ADMIT Internal Medicine; ATTEND Internal Medicine
PROC: 3E033GC Introduction of Other Therapeutic Substance into Peripheral Vein, Percutaneous Approach (ICD-10-PCS; principal; 2022-05-02)
PROC: 3E013GC Introduction of Other Therapeutic Substance into Subcutaneous Tissue, Percutaneous Approach (ICD-10-PCS; 2022-05-02)
DX: R74.8 Abnormal levels of other serum enzymes (principal); E07.89 Other specified disorders of thyroid; I10 Essential (primary) hypertension; E78.00 Pure hypercholesterolemia, unspecified; S00.03XA Contusion of scalp, initial encounter; V49.9XXA Car occupant (driver) (passenger) injured in unspecified traffic accident, initial encounter; Y93.89 Activity, other specified; Y92.89 Other specified places as the place of occurrence of the external cause; M54.9 Dorsalgia, unspecified
CPT/HCPCS: 36415; 70450-TC; 71260-TC; 72125-TC; 74177-TC; 80053; 80061; 83036; 83735; 84439; 84443; 84484; 85025; 85027; 93005; 93010; 93306-TC; 99285-25; C9803-CS; G0378; Q9967; U0003; U0005

== ENCOUNTER 2022-05-11 22:12 | Emergency (ER) | payer OTHER ==
[2022-05-11 22:18] VITALS: BP 152/92; PULSE 69; RESP 16; TEMP 98.9; BMI 28.3
[2022-05-12] MEDS ORDERED: FAMOTIDINE 20 MG TABLET PO ONE (00:01)
[2022-05-12] MEDS ORDERED: MAG HYDROX/AL HYDROX/SIMETH 30 ML UNIT-DOSE CUP PO ONE (00:01)
[2022-05-12] MEDS ORDERED: LIDOCAINE VISCOUS 2% ORAL/TOP 15 ML UNIT-DOSE CUP MM ONE (00:02)
[2022-05-12] MEDS ORDERED: LIDOCAINE VISCOUS 2% ORAL/TOP 15 ML UNIT-DOSE CUP ONE (00:08)
[2022-05-12] MEDS ORDERED: MAG HYDROX/AL HYDROX/SIMETH 30 ML UNIT-DOSE CUP ONE (00:08)
[2022-05-12] MEDS ORDERED: FAMOTIDINE 20 MG TABLET ONE (00:08)
== END 2022-05-12 00:20 | disposition left against medical advice (07) ==
LOC: JERFT 22:12 → JER 22:12 → JERFT 05-12 00:20
DX: R07.89 Other chest pain (principal)
CPT/HCPCS: 93005; 93010; 99283-25